=== PATIENT | female | born 1980 | race Caucasian/White ===

== ENCOUNTER 2017-10-23 18:36 | Emergency (ER) | payer SELFPAY | END 2017-10-23 19:31 | disposition home or self-care (01) | PROVIDERS: Emergency Provider Nurse Practitioner Family; Family Provider Internal Medicine Adolescent Medicine; Visit Provider Nurse Practitioner Family | DX: J10.1 Influenza due to other identified influenza virus with other respiratory manifestations (principal); J45.909 Unspecified asthma, uncomplicated | CPT/HCPCS: 87804; 99201 ==

== ENCOUNTER → 2019-01-24 12:15 | Outpatient (CLI) | payer BC, SELFPAY ==
[2019-01-24 14:43] LABS: Alanine Aminotransferase 23 U/L (12-78); Albumin Level 3.7 gm/dL (3.4-5.0); Albumin/Globulin Ratio 1.1 (1.1-1.8); Alkaline Phosphatase 86 U/L (46-116); Anion Gap 15.3 mEq/L (5-15); Aspartate Amino Transferase 15 U/L (15-37); Bilirubin,Total 0.2 mg/dL (0.2-1.0); Blood Urea Nitrogen 11 mg/dL (7-18); Calcium 9.1 mg/dL (8.5-10.1); Carbon Dioxide 24 mmol/L (21.0-32.0); Chloride 106 mmol/L (98-107); Creatinine,Serum 0.66 mg/dL (0.55-1.02); Estimated Glomerular Filt Rate 100 ml/min (>60); GFR (African American) 121 ML/MIN (>60); Globulin 3.5 gm/dl (1.3-3.2); Glucose 85 mg/dL (74-106); Potassium 4.3 mmoL/L (3.5-5.1); Sodium 141 mmol/L (136-145); Thyroid Stimulating Hormone 3.73 uIU/ml (0.358-3.740); Total Protein,Serum 7.2 gm/dL (6.4-8.2)
== END ==
PROVIDERS: Visit Provider Internal Medicine Adolescent Medicine
DX: E03.9 Hypothyroidism, unspecified (principal)
CPT/HCPCS: 36415; 80053; 83036; 84443

== ENCOUNTER → 2020-02-01 08:18 | Outpatient (CLI) | payer OTHER, SELFPAY ==
--- NOTE | 2020-02-01 08:21 | US_ITS ---
PROCEDURE: US GALLBLADDER CLINICAL INDICATION: RUQ PAIN,DIARRHEA COMPARISON: No exams were available for comparison FINDINGS: Pancreas: Portions seen are within normal limits. Distal pancreatic body and tail are not adequately visualized for assessment. Liver: There is diffuse fatty infiltration of the liver without a discrete lesion.. There is appropriate direction of blood flow within a non dilated portal vein. Right kidney: Unremarkable appearing. No hydronephrosis. Gallbladder: No stones are evident. There is no gallbladder wall thickening. Common duct is normal in diameter. There are some internal echogenicities consistent with sludge and or reverberation artifact. IMPRESSION: Small amount of sludge in the gallbladder without stones or ancillary findings of acute cholecystitis. Diffuse fatty infiltration of the liver. Dictated by: Zach Frost 02/01/2020 09:35 Electronically signed by Zach Frost in [place] 02/01/2020 09:35
== END ==
PROVIDERS: PCP Internal Medicine Adolescent Medicine; Visit Provider Nurse Practitioner Family
DX: R10.10 Upper abdominal pain, unspecified (principal); R07.89 Other chest pain; K52.9 Noninfective gastroenteritis and colitis, unspecified
CPT/HCPCS: 76705

== ENCOUNTER → 2020-02-08 10:20 | Outpatient (CLI) | payer OTHER, SELFPAY ==
--- NOTE | 2020-02-08 10:25 | NM_ITS ---
PROCEDURE: NM HEPATOBILIARY W PHARM CLINICAL INDICATION: GB SLUDGE Right upper quadrant pain, gallbladder sludge COMPARISON: US GALLBLADDER from 02/01/2020 TECHNIQUE: Dose: 8.12 mCi technetium Choletec and 2.4 mcg of CCK FINDINGS: Gallbladder activity begins at 5 minutes. Small bowel activity is present by 25 minutes. There is homogeneous activity within hepatic parenchyma Ejection fraction is calculated to be 79 percent which is within normal limits. IMPRESSION: Unremarkable exam with no evidence of common or cystic duct obstruction with normal gallbladder ejection fraction Dictated by: Zachery Shukla MD 02/08/2020 13:31 Electronically signed by Zachery Shukla MD in [place] 02/08/2020 13:31
--- NOTE | 2020-02-08 11:35 | HMH.ITSHM ---
Current Home Medications as stated by this patient Lizbeth Real or b2b sales representative. []ALBUTEROL
== END ==
PROVIDERS: PCP Internal Medicine Adolescent Medicine; Visit Provider Nurse Practitioner Family
DX: K82.8 Other specified diseases of gallbladder (principal)
CPT/HCPCS: 78227; A9537; J2805

== ENCOUNTER → 2020-03-28 13:52 | Outpatient (CLI) | payer OTHER, SELFPAY ==
--- NOTE | 2020-03-28 13:56 | US_ITS ---
PROCEDURE: US THYROID CLINICAL INDICATION: THYROID ENLARGEMENT COMPARISON: No exams were available for comparison FINDINGS: Right lobe: 5.1 x 1.7 x 1.8 cm. There is some heterogeneous echogenicity. Questionable 8 mm slightly hypoechoic nodule mid polar region versus an area of heterogeneous echogenicity. Consider six-month follow-up Left lobe: 3.9 x 1.2 x 1.4 cm also with some heterogeneous echogenicity. A 3 mm hypoechoic nodules present in the upper pole Isthmus: Unremarkable Additional findings: IMPRESSION: Enlarged right lobe of the thyroid gland. Bilateral heterogeneous echogenicity with questionable nodule in the right and a 3 mm hypoechoic nodule on the left. Consider six-month follow-up for the questionable nodule on the right. Dictated by: Zachery Shukla MD 03/29/2020 06:51 Electronically signed by Zachery Shukla MD in [place] 03/29/2020 06:51
== END ==
PROVIDERS: PCP Internal Medicine Adolescent Medicine; Visit Provider Internal Medicine Adolescent Medicine
DX: E04.9 Nontoxic goiter, unspecified (principal)
CPT/HCPCS: 76536

== ENCOUNTER → 2020-04-09 14:16 | Outpatient (CLI) | payer OTHER, SELFPAY ==
--- NOTE | 2020-04-09 14:32 | XR_ITS ---
PROCEDURE: XR CHEST 2V CLINICAL HISTORY: thyroid enlarged COMPARISON: CXR CHEST(2 VIEWS-NOT PORTABLE) from 11/14/2013 CXR2V XR chest 2V from 12/28/2018 FINDINGS: The cardiomediastinal silhouette and pulmonary vascularity are within normal limits. The lungs are clear without infiltrates, suspicious nodules, or pleural effusions. No acute bony abnormalities. IMPRESSION: No acute findings. Dictated by: Dr. Adrian Banda MD 04/09/2020 14:[address] Adrian Banda MD in [place] 04/09/2020 14:50
[2020-04-09 16:00] LABS: Free T4 (Free Thyroxine) 0.84 ng/dl (0.78-2.19)
[2020-04-09 16:15] LABS: Thyroid Stimulating Hormone 2.97 uIU/mL (0.465-4.68)
[2020-04-11 09:12] LABS: Thyroid Peroxidase Antibodies <9 IU/mL (0-34)
[2020-04-11 09:13] LABS: Triiodothyronine (T3) Free 3.1 pg/mL (2.0-4.4)
[2020-04-12 17:10] LABS: Calcitonin <2.0 pg/mL (0.0-5.0); Thyroid Stimulating Immunoglob <0.10 IU/L (0.00-0.55)
== END ==
PROVIDERS: Visit Provider Otolaryngology
DX: E01.0 Iodine-deficiency related diffuse (endemic) goiter (principal); J39.8 Other specified diseases of upper respiratory tract
CPT/HCPCS: 36415; 71046; 82308; 82310; 84439; 84443; 84445; 84481; 86376

== ENCOUNTER → 2020-04-12 08:41 | Outpatient (CLI) | payer OTHER, SELFPAY ==
--- NOTE | 2020-04-12 08:41 | FL_ITS ---
PROCEDURE: FL BARIUM SWALLOW CLINICAL INDICATION: dysphagia COMPARISON: No exams were available for comparison TECHNIQUE: In the upright position the patient was observed to swallow barium in both the AP and lateral view. The cervical esophagus was examined under fluoroscopy with images obtained. The patient was then placed prone in the right anterior oblique position and was observed to swallow barium with Valsalva technique . FLUOROSCOPY TIME: 54 seconds FINDINGS: There was no evidence of aspiration. There was normal peristalsis. No filling defects or mucosal abnormalities. No masses or strictures. There is a small sliding hiatal hernia. There is a small filling defect along the anterior aspect the esophagus which could be due to a small esophageal web. There is no esophageal deviation. IMPRESSION: 1. Small sliding hiatal hernia. 2. Possible small non constricting esophageal web anteriorly at the C4 level Dictated by: Zachery Shukla MD 04/12/2020 14:57 Electronically signed by Zachery Shukla MD in [place] 04/12/2020 14:57
== END ==
PROVIDERS: PCP Internal Medicine Adolescent Medicine; Visit Provider Otolaryngology
DX: J39.8 Other specified diseases of upper respiratory tract (principal); R13.10 Dysphagia, unspecified
CPT/HCPCS: 74220

== ENCOUNTER → 2020-07-12 08:54 | Outpatient (CLI) | payer OTHER, SELFPAY ==
--- NOTE | 2020-07-12 08:54 | FL_ITS ---
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 The cervical esophagus was examined under fluoroscopy with images obtained. The patient was then placed prone in the right anterior oblique position and was observed to swallow barium with Valsalva technique . FLUOROSCOPY TIME: 37 seconds FINDINGS: As noted previously there is a small filling defect along the anterior and posterior aspect of the cervical esophagus at the C4 level which could represent a tiny esophageal web. This is not significantly changed. Mid distal esophagus have an unremarkable appearance. The small sliding hiatal hernia previously described is not identified on today's exam. IMPRESSION: No change in the possible small non constricting esophageal web Dictated by: Zachery Shukla MD 07/12/2020 12:12 Zachery Shukla MD in [place] 07/12/2020 12:12
== END ==
PROVIDERS: PCP Internal Medicine Adolescent Medicine; Visit Provider Otolaryngology
DX: Q39.4 Esophageal web (principal); R13.10 Dysphagia, unspecified
CPT/HCPCS: 74220

== ENCOUNTER → 2020-09-12 09:59 | Outpatient (CLI) | payer OTHER, SELFPAY ==
--- NOTE | 2020-09-12 | CA_ITS ---
APPROVED REPORT Right Upper Extremity Venous Study for DVT. Magneto Electrician: Dory Ureña RVT Indications Upper Extremity Pain: Right Upper Extremity Edema: Right PT HAD INJECTION SEVERAL MTHS AGO HAS HAD SWELLING RUE AND RT CHEST SINCE Risk Factors Obesity Vein Imaging IJV (R): Normal phasic flow is seen. Normal flow, augmentation and compression is seen. No evidence of Deep Vein Thrombosis. No abnormalities are demonstrated. SCV (R): Normal phasic flow is seen. Normal flow, augmentation and compression is seen. No evidence of Deep Vein Thrombosis. No abnormalities are demonstrated. Axillary (R): Normal phasic flow is seen. Normal flow, augmentation and compression is seen. No evidence of Deep Vein Thrombosis. No abnormalities are demonstrated. Brachial (R): Normal phasic flow is seen. Normal flow, augmentation and compression is seen. No evidence of Deep Vein Thrombosis. No abnormalities are demonstrated. Basilic (R): Normal phasic flow is seen. Normal flow, augmentation and compression is seen. No evidence of Deep Vein Thrombosis. No abnormalities are demonstrated. Cephalic (R): Normal phasic flow is seen. Normal flow, augmentation and compression is seen. No evidence of Deep Vein Thrombosis. No abnormalities are demonstrated. Radial (R): Normal phasic flow is seen. Normal flow, augmentation and compression is seen. No evidence of Deep Vein Thrombosis. No abnormalities are demonstrated. Ulnar (R): Normal phasic flow is seen. Normal flow, augmentation and compression is seen. No evidence of Deep Vein Thrombosis. No abnormalities are demonstrated. Findings Study suggests no evidence of DVT of the right upper extremity. Study suggests no evidence of SVT of the right upper extremity. Conclusion Study suggests no evidence of DVT of the right upper extremity. Study suggests no evidence of SVT of the right upper extremity. Electronically signed by : Zachery Shukla MD 09/12/2020 17:45:39
== END ==
PROVIDERS: PCP Internal Medicine Adolescent Medicine; Visit Provider Internal Medicine Adolescent Medicine
DX: M79.601 Pain in right arm (principal)
CPT/HCPCS: 93971

== ENCOUNTER → 2020-09-23 09:35 | Outpatient (CLI) | payer OTHER, SELFPAY ==
--- NOTE | 2020-09-23 09:39 | CT_ITS ---
PROCEDURE: CT CHEST WO/W CON CLINCAL INDICATION: LYMPHEDEMA right lymphadema after steroid injection into r arm COMPARISON: No exams were available for comparison TECHNIQUE: IV Contrast: 75ml Isovue 370 Axial images obtained with sagittal and coronal reformats. All CT scans at the facility use one or more dose reduction, viz: automated exposure control, ma/kV adjustment per patient size (including targeted exams where dose is matched to indication, i.e. head), or iterative reconstruction technique. FINDINGS: HEART AND MEDIASTINAL STRUCTURES: There is some minimal increased soft tissue density in the anterior mediastinum and may be related to residual thymic tissue. No mediastinal or hilar mass or adenopathy LUNGS AND PLEURAL SPACES: Unremarkable. BONY STRUCTURES: There is a small sclerotic focus in the T4 vertebral body consistent with a small bone island. UPPER ABDOMEN: Fatty liver ADDITIONAL FINDINGS: No axillary adenopathy or axillary mass or fluid collection. IMPRESSION: Essentially negative CT of the chest with contrast. Dictated by: Zachery Shukla MD 09/24/2020 12:59 Zachery Shukla MD in [place] 09/24/2020 12:59
== END ==
PROVIDERS: PCP Internal Medicine Adolescent Medicine; Visit Provider Internal Medicine Adolescent Medicine
DX: I89.0 Lymphedema, not elsewhere classified (principal)
CPT/HCPCS: 71270

== ENCOUNTER → 2020-10-01 13:23 | Outpatient (CLI) | payer OTHER, SELFPAY ==
--- NOTE | 2020-10-01 13:33 | XR_ITS ---
PROCEDURE: XR FOOT WT BEARING RT 3V CLINICAL INDICATION: pain COMPARISON: CR XR FOOT RT MIN 3V from 08/20/2019 FINDINGS: No fracture or dislocation. No lytic or blastic change. There is normal mineralization. The joint spaces are well preserved.. There is good alignment. There is a small calcaneal spur and a small Achilles enthesophyte. Other findings:None. IMPRESSION: No change with no acute finding Dictated by: Zachery Shukla MD 10/01/2020 15:27 Zachery Shukla MD in [place] 10/01/2020 15:27
--- NOTE | 2020-10-01 13:33 | XR_ITS ---
PROCEDURE: XR FOOT WT BEARING LT 3V CLINICAL INDICATION: pain COMPARISON: CR XR FOOT RT MIN 3V from 08/20/2019 FINDINGS: No fracture or dislocation. No lytic or blastic change. There is normal mineralization. The joint spaces are well-preserved. No significant degenerative/arthritic changes. No erosive changes evident. Other findings:None. There is a small calcaneal spur without erosive change in the small Achilles enthesophyte. There are hypertrophic changes at the base of the calcaneal spur. IMPRESSION: Small calcaneal spur with hypertrophic changes of the calcaneus at the base of the spur otherwise negative Dictated by: Zachery Shukla MD 10/01/2020 17:00 Zachery Shukla MD in [place] 10/01/2020 17:00
== END ==
PROVIDERS: PCP Internal Medicine Adolescent Medicine; Visit Provider Podiatrist
DX: M79.672 Pain in left foot (principal); M79.671 Pain in right foot
CPT/HCPCS: 73630

== ENCOUNTER 2021-02-13 12:00 | Emergency (ER) | payer OTHER, SELFPAY ==
--- NOTE | 2021-02-13 12:21 | XR_ITS ---
PROCEDURE: XR HAND RT MIN 3V CLINICAL INDICATION: hand pain and swelling, no injury COMPARISON: No exams were available for comparison FINDINGS: No fracture or dislocation. No lytic or blastic change. There is normal mineralization. The joint spaces are well-preserved. No significant degenerative/arthritic changes. No erosive changes evident. Other findings:There is a groove like area along the tip of the distal phalanx of the which could be related to an old fracture. IMPRESSION: Possible old fracture distal phalanx of the thumb otherwise negative Dictated by: Zachery Shukla MD 02/13/2021 12:45 Zachery Shukla MD in [place] 02/13/2021 12:45
[2021-02-13 12:26] VITALS: RESP 16; TEMP 37.1; O2SAT 96; BMI 47.5
--- NOTE | 2021-02-13 12:55 | HMH.EDUTC ---
[facility] Disposition Clinical Impression: Right hand pain, Cyst of joint of right hand Disposition: Home, Self-Care Condition on Discharge: Good Instructions: Ganglion Cyst, DI for Hand Pain, DI Ganglion Cyst Additional Instructions: Rest the extremity, Wear the [place] wrap for compression, Elevate the extremity as tolerated while you are resting. Take ibuprofen for pain. I sent in a prescription to your pharmacy. Follow up with Dr. Hook (orthopedics) if your symptoms persist. I put in a referral but you need to call his office and schedule an appointment. Follow up with your regular doctor. GO TO THE ER FOR ANY WORSENING SYMPTOMS Prescriptions: Ibuprofen [Ibuprofen 800mg Tablet] 800 mg PO Q8HP PRN #30 tab PRN Reason: Moderate Pain Transmission Status: Received by [id number] cephALEXin [cephALEXin 500mg capsule] 500 mg PO Q6H 10 Days #40 cap Transmission Status: Received by [id number] Referrals: Oneal Lopez MD [Primary Care Provider] - Davide Hook MD [Staff Physician] - Forms: Work/School Release Time of Disposition: 13:02 Medical Decision Making - Medical Records Medical records reviewed: No: I reviewed the patient's medical records. - Cole Inquiry Pt receiving controlled substance: No Vital Signs: 02/13/21 12:26 02/13/21 13:06 Temperature 98.7 F 98.7 F Temperature Source Oral Oral Pulse Rate 70 Respiratory Rate 16 16 Blood Pressure 162/72 H 02 Sat by Pulse Oximetry 96 Oxygen Delivery Method Room Air Room Air - Radiology Data #1 Image(s): Hand Image Reviewed: Yes I reviewed the patient's radiology image, Yes I have reviewed radiologist's interpretation Preliminary Findings: Normal/NAD, No Fracture Seen PROCEDURE: XR HAND RT MIN 3V CLINICAL INDICATION: hand pain and swelling, no injury COMPARISON: No exams were available for comparison FINDINGS: No fracture or dislocation. No lytic or blastic change. There is normal mineralization. The joint spaces are well-preserved. No significant degenerative/arthritic changes. No erosive changes evident. Other findings:There is a groove like area along the tip of the distal phalanx of the which could be related to an old fracture. IMPRESSION: Possible old fracture distal phalanx of the thumb otherwise negative Dictated by: Zachery Shukla MD 02/13/2021 12:45 Zachery Shukla MD in [place] 02/13/2021 12:45 [facility] HPI - General Stated complaint: knot on top of right hand, no accident Time Seen by Provider: 02/13/21 12:55 Mode of Arrival: Ambulatory Source of Information: Patient Limitations: No Limitations Description of Symptoms (Recalled from Triage Doc. by RN): Knot on right hand HEENT Symptoms (Recalled from RN notes): No Resp Symptoms (Recalled from RN notes): No Skin Symptoms (Recalled from RN notes): No MS Symptoms (Recalled from RN notes): Yes Functional Status (Recalled from RN notes): na - History of Present Illness Provider Complaint: She states that she has has painful area of swelling on top of her right hand. She denies any known injury. She denies any redness in the area. She denies any fever/chills. She denies any recent IV or blood sticks. - Related Data Home Medications Medication Instructions Recorded Confirmed cyclobenzaprine 10 mg tablet 10 mg PO tab 10/01/20 01/27/21 diclofenac sodium 1 % topical gel TOPICAL 10/01/20 01/27/21 Previous Rx's Medication Instructions Recorded meloxicam 7.5 mg tablet 7.5 mg PO DAILY 30 Days #30 tab 01/07/21 methylprednisolone 4 mg tablets in See Rx Instructions PO PER PKG DIR 01/07/21 a dose pack #21 tab Ibuprofen [Ibuprofen 800mg 800 mg PO Q8HP PRN #30 tab 02/13/21 Tablet] cephALEXin [cephALEXin 500mg 500 mg PO Q6H 10 Days #40 cap 02/13/21 capsule] Allergies Allergy/AdvReac Type Severity Reaction Status Date / Time No Known Allergies Allergy Verified 01/27/21 14:49 - Worker's Comp Is this a Worker
[2021-02-13 13:06] VITALS: BP 162/72; PULSE 70; RESP 16; TEMP 37.1; O2SAT 98
== END 2021-02-13 13:07 | disposition home or self-care (01) ==
PROVIDERS: Emergency Provider Nurse Practitioner Family; PCP Internal Medicine Adolescent Medicine
DX: M25.841 Other specified joint disorders, right hand (principal); F41.9 Anxiety disorder, unspecified; K21.9 Gastro-esophageal reflux disease without esophagitis; Z79.899 Other long term (current) drug therapy
CPT/HCPCS: 73130; 99202; G0463

== ENCOUNTER 2021-02-24 09:41 | Outpatient (RCR) | payer OTHER, SELFPAY | END 2021-02-24 10:15 | disposition home or self-care (01) | LOC: OT 09:41 | PROVIDERS: Visit Provider Orthopaedic Surgery | DX: M79.641 Pain in right hand (principal) | CPT/HCPCS: 97763 ==

== ENCOUNTER → 2021-04-03 12:14 | Outpatient (CLI) | payer OTHER, SELFPAY ==
--- NOTE | 2021-04-03 12:26 | XR_ITS ---
PROCEDURE: XR CERVICAL SPINE 3V CLINICAL INDICATION: Radiating pain from hand COMPARISON: No exams were available for comparison FINDINGS: No fracture or dislocation. No lytic or blastic change. Minimal anterolisthesis C3 on C4 of 2 mm which may be physiologic. The disc spaces are well preserved. No significant degenerative change. IMPRESSION: Negative cervical spine Dictated by: Zachery Shukla MD 04/03/2021 13:10 Zachery Shukla MD in [place] 04/03/2021 13:10
== END ==
PROVIDERS: PCP Internal Medicine Adolescent Medicine; Visit Provider Orthopaedic Surgery
DX: M79.641 Pain in right hand (principal)
CPT/HCPCS: 72040

== ENCOUNTER 2021-04-25 14:33 | Outpatient (RCR) | payer OTHER, SELFPAY | END 2021-04-25 15:17 | disposition home or self-care (01) | LOC: OT 14:33 | PROVIDERS: Visit Provider Orthopaedic Surgery | DX: M65.4 Radial styloid tenosynovitis [de Quervain] (principal) | CPT/HCPCS: 97763 ==

== ENCOUNTER 2022-12-12 19:07 | Emergency (ER) | payer OTHER, SELFPAY ==
--- NOTE | 2022-12-12 19:21 | XR_ITS ---
PROCEDURE INFORMATION: Exam: XR Left Hand Exam date and time: 12/12/2022 7:18 PM Age: 42 years old Clinical indication: Pain; Hand; Left; Additional info: Pain 2nd 3rd digits TECHNIQUE: Imaging protocol: Radiologic exam of the Left hand. Views: 3 or more views. COMPARISON: No relevant prior studies available. FINDINGS: Bones/joints: Normal. Soft tissues: Normal. IMPRESSION: No acute findings.
--- NOTE | 2022-12-12 19:21 | XR_ITS ---
PROCEDURE INFORMATION: Exam: XR Left Wrist Exam date and time: 12/12/2022 7:19 PM Age: 42 years old Clinical indication: Pain; Wrist; Left TECHNIQUE: Imaging protocol: Radiologic exam of the Left wrist. Views: 3 or more views. COMPARISON: CR Hand L 12/12/2022 7:18 PM FINDINGS: Bones/joints: Normal. Soft tissues: Normal. IMPRESSION: No acute findings.
[2022-12-12 19:25] VITALS: BP 142/90; PULSE 73; RESP 20; TEMP 36.5; O2SAT 96; BMI 47.5
--- NOTE | 2022-12-12 19:29 | EXP.UTC ---
Discharge Plan Disposition Patient Disposition: Home, Self-Care Condition: Good Prescriptions Prescriptions: No Action losartan 50 mg tablet 50 mg PO DAILY Referrals Follow up/Referrals: Gentry Falcon DO [Staff Physician] - See instructions Oneal Lopez MD [Primary Care Provider] - See instructions Activity Restrictions/Add. Instructions Additional Instructions/Restrictions: Rest the extremity, Elevate the extremity as tolerated while you are resting. Take ibuprofen for pain. Follow up with Dr. Falcon (orthopedics). I put in a referral but you need to call his office and schedule an appointment. Follow up with your regular doctor. GO TO THE ER FOR ANY WORSENING SYMPTOMS Clinical Impressions Clinical Impression: Sprain of left hand, Left hand pain Instructions Patient Instructions: DI for Hand Injury, DI for Hand Pain Discharge ED Provider: Luis Padgett [facility] General Stated complaint: PAIN l hAND Time Seen by Provider: 12/12/22 19:29 History of Present Illness Provider Complaint: She states that for the past 2 weeks she has had pain in her left hand. She states that her symptoms began when accidentally bumped her hand on the inside of her washing machine while getting clothe out of it. Related Data Home Medications Medication Instructions Recorded Confirmed losartan 50 mg tablet 50 mg PO DAILY 02/10/22 02/10/22 Allergies Allergy/AdvReac Type Severity Reaction Status Date / Time No Known Allergies Allergy Verified 02/10/22 13:36 [facility] Disclaimer: The information contained in this section may have been updated after the patient was seen, as this information can be updated by other users. Medical History Hypertension Social History Smoking Status: Former smoker second hand exposure: No alcohol intake: never current occupational status: employed Travel in the last 8 weeks: None current occupational exposures/hazards: No caffeine: Yes ROS Obtained: Yes All systems reviewed & no additional complaints except as documented Constitutional Constitutional: Denies chills and Denies fever(s) Eyes Eyes: Denies eye discharge ENT Ears, Nose, Mouth, and Throat: Denies dizziness, Denies otalgia and Denies sore throat Cardiovascular Cardiovascular: Denies chest pain Respiratory Respiratory: Denies shortness of breath, Denies chest congestion, Denies cough, Denies stridor and Denies wheezing Gastrointestinal Gastrointestingal: Denies nausea or vomiting Musculoskeletal Musculoskeletal: Reports as per HPI Integumentary/Breasts Skin/Breast: Denies rash Neurologic Neurologic: Denies dizziness and Denies paresthesias Allergic/Immunologic Allergic/Immunologic: Denies wheezing Physical Exam General General appearance: alert and in no apparent distress Head Head exam: atraumatic, normocephalic and normal inspection Eye Eye exam: Present normal appearance, PERRL and EOMI ENT ENT exam: Present normal exam, normal oropharynx, mucous membranes moist, TM's normal bilaterally and normal external ear exam Neck Neck exam: Present normal inspection, full ROM and trachea midline; Absent meningismus or lymphadenopathy Chest Chest inspection: Present normal inspection and symmetric chest wall rise; Absent tenderness Respiratory Respiratory exam: Present normal lung sounds bilaterally; Absent respiratory distress Cardiovascular Cardiovascular exam: Present regular rate and normal rhythm; Absent JVD Abdominal Exam Abdominal exam: Present soft and normal bowel sounds; Absent distention, tenderness or guarding Extremities Exam Extremities exam: Present normal capillary refill; Absent calf tenderness Expanded Upper Extremity Exam Left: Elbow exam: Present normal inspection and full ROM; Absent tenderness Forearm/Wrist exam: Present normal inspection and full R
[2022-12-12 20:18] VITALS: BP 142/90; PULSE 73; RESP 20; TEMP 36.5; O2SAT 96
== END 2022-12-12 20:19 | disposition home or self-care (01) ==
PROVIDERS: Emergency Provider Nurse Practitioner Family; PCP Internal Medicine Adolescent Medicine
DX: S63.92XA Sprain of unspecified part of left wrist and hand, initial encounter (principal)
CPT/HCPCS: 73110; 73130; 99212; 99213; G0463

== ENCOUNTER 2023-07-22 16:04 | Emergency (ER) | payer OTHER, SELFPAY ==
[2023-07-22] VITALS (7 sets, daily range): BP systolic 130–176; BP diastolic 75–101; PULSE 54–87; RESP 14–20; TEMP 36.5–37.1; O2SAT 95–100; BMI 38.4; BMI 38.6
--- NOTE | 2023-07-22 16:23 | EXP.UTC ---
Discharge Plan Disposition Chief Complaint: PAIN Prescriptions Prescriptions: No Action losartan 50 mg tablet 50 mg PO DAILY Referrals Follow up/Referrals: Oneal Lopez MD [Primary Care Provider] - See instructions Discharge ED Provider: Keny Giles [facility] HPI <Linda Cordova APRN - Last Filed: 07/22/23 19:46> General Chief complaint: PAIN Stated complaint: Neck Pain,Into left shoulder Mode of Arrival: Ambulatory Source of Information: Patient Limitations: No Limitations Time Seen by Provider: 07/22/23 16:10 Description of Symptoms (Recalled from Triage Doc. by RN): PATIENT C/O LEFT SHOULDER PAIN THAT RADIATES UP NECK AND INTO SIDE OF HEAD ON AND OFF SINCE WEDNESDAY, BUT FEELS WORSE TODAY. SHE ALSO STATES SHE FEELS SHAKY AND OFF . HEENT Symptoms (Recalled from RN notes): No Resp Symptoms (Recalled from RN notes): No Skin Symptoms (Recalled from RN notes): No MS Symptoms (Recalled from RN notes): No Functional Status (Recalled from RN notes): WNL History of Present Illness Provider Complaint: Patient states that she has been at a conference in [place] and she started having pain in her left shoulder and left side of neck that was on and off and was achy like States that she got a heating pad thinking it was a muscle or something States that it has came and gone but today it was worse States that it is an achy like pain that goes from her left shoulder into left side of neck, up left side of face and she feels distant states that she feels off and on her way home she felt dizzy and shaky inside State that she just doesnt feel right Related Data Home Medications Medication Instructions Recorded Confirmed losartan 50 mg tablet 50 mg PO DAILY 02/10/22 02/10/22 Allergies Allergy/AdvReac Type Severity Reaction Status Date / Time No Known Allergies Allergy Verified 02/10/22 13:36 Worker's Comp Is this a Worker's Comp case?: No PFSH <Linda Cordova APRN - Last Filed: 07/22/23 19:46> [facility] Disclaimer: The information contained in this section may have been updated after the patient was seen, as this information can be updated by other users. Medical History Hypertension Social History Smoking Status: Never smoker second hand exposure: No alcohol intake: never current occupational status: employed Travel in the last 8 weeks: None current occupational exposures/hazards: No caffeine: Yes <Linda Cordova APRN - Last Filed: 07/22/23 19:46> ROS Obtained: Yes All systems reviewed & no additional complaints except as documented and Yes Systems reviewed as appropriate & no additional complaints except as documented Constitutional Constitutional: Reports system reviewed and no additional complaints, except as documented and Reports as per HPI ENT Ears, Nose, Mouth, and Throat: Reports system reviewed and no additional complaints, except as documented, Reports as per HPI and Reports dizziness Cardiovascular Cardiovascular: Reports system reviewed and no additional complaints, except as documented, Reports as per HPI and Reports radiating jaw, neck or arm pain (reports pain in left shoulder, up left side of neck/face into head) Comments: Reports feels shaky inside and distant Respiratory Respiratory: Reports system reviewed and no additional complaints, except as documented, Reports as per HPI and Denies shortness of breath Gastrointestinal Gastrointestingal: Reports system reviewed and no additional complaints, except as documented and as per HPI Neurologic Neurologic: Reports system reviewed and no additional complaints, except as documented, Reports as per HPI and Reports dizziness Physical Exam <Linda Cordova APRN - Last Filed: 07/22/23 19:46> General General appearance: alert and in no apparent distress Respiratory Respiratory exam: Present normal lung sounds bilaterally; Absent resp
--- NOTE | 2023-07-22 16:38 | ECG_ITS ---
APPROVED REPORT Exam: Resting ECG HR:62 bpm ECG Measurements Heart Rate 62 AXES TX 158 P 30 QRSd 92 QRS -1 QT 401 T 42 QTc 406 Conclusion SINUS RHYTHM LOW QRS VOLTAGE IN PRECORDIAL LEADS [QRS DEFLECTION < 1.0 mV IN CHEST LEADS] BORDERLINE ECG UNCONFIRMED REPORT Electronically signed by : Oneal Lopez MD 07/23/2023 09:55:54
[2023-07-22 17:12] LABS: Basophils # 0.1 K/mm3 (0-0.2); Basophils % 0.7 % (0.1-2.0); Eosinophils # 0.3 K/mm3 (0.0-0.4); Eosinophils % 2.1 % (0.1-12.0); Hematocrit 40.6 % (37.0-47.0); Hemoglobin 13.1 g/dL (12.2-16.2); Lymphocytes # 2.9 K/mm3 (0.7-4.5); Lymphocytes % 24.5 % (10-50); Mean Corpuscular HGB Conc 32.3 g/dL (31.8-35.4); Mean Corpuscular Hemoglobin 29.7 pg (27.0-31.2); Mean Corpuscular Volume 91.9 fl (81-99); Mean Platelet Volume 7.8 fl (7.4-10.4); Monocytes # 0.5 K/mm3 (0.1-1.0); Monocytes % 4.3 % (1.7-9.3); Neutrophils # 8.2 K/mm3 (1.8-7.8); Neutrophils % 68.4 % (37.0-80.0); Platelet Count 362 K/mm3 (142-424); Red Blood Count 4.41 M/mm3 (4.20-5.40); Red Cell Distribution Width 12.7 % (11.5-17.5)
--- NOTE | 2023-07-22 17:13 | PC.NURSE ---
Dr. Giles at [facility] for pt eval
[2023-07-22 17:14] LABS: Alanine Aminotransferase 17 U/L (12-78); Albumin/Globulin Ratio 1.4 (1.1-1.8); Alkaline Phosphatase 54 U/L (38-126); Aspartate Amino Transferase 26 U/L (14-36); Bilirubin,Total 0.2 mg/dl (0.2-1.3); Blood Urea Nitrogen 13 mg/dl (7-17); Calcium 8.6 mg/dl (8.4-10.2); Carbon Dioxide 24 mmol/L (22.0-30.0); Chloride 106 mmol/L (98-107); Creatinine Clearance Estimated 146 mL/min (50-200); Estimated Glomerular Filt Rate 78 ml/min (>60); GFR (African American) 95 ML/MIN (>60); Globulin 2.8 g/dL (1.3-3.2); Glucose 89 mg/dl (74-100); Sodium 136 mmol/L (136-145); Total Protein,Serum 6.8 g/dl (6.3-8.2)
--- NOTE | 2023-07-22 17:16 | CT_ITS ---
PROCEDURE INFORMATION: Exam: CT Head Without Contrast Exam date and time: 07/22/2023 5:53 PM Age: 43 years old Clinical indication: Pain; Headache; Additional info: Headache L side TECHNIQUE: Imaging protocol: Computed tomography of the head without contrast. Radiation optimization: All CT scans at this facility use at least one of these dose optimization techniques: automated exposure control; mA and/or kV adjustment per patient size (includes targeted exams where dose is matched to clinical indication); or iterative reconstruction. REPORTING DATA: Count of CT and Cardiac NM exams in prior 12 months: This patient has received 0 known CTs and 0 known cardiac nuclear medicine studies in the 12 months prior to the current study. COMPARISON: CR XR CERVICAL SPINE 3V 04/03/2021 12:28 PM FINDINGS: Brain: Normal. No hemorrhage. Unremarkable white matter. No mass effect. Cerebral ventricles: No ventriculomegaly. Paranasal sinuses: Mild paranasal sinus disease. Mastoid air cells: Visualized mastoid air cells are well aerated. Bones/joints: Unremarkable. No acute fracture. Soft tissues: Unremarkable. IMPRESSION: No acute intracranial abnormality.
--- NOTE | 2023-07-22 17:16 | CT_ITS ---
PROCEDURE INFORMATION: Exam: CTA Neck With Contrast Exam date and time: 07/22/2023 5:53 PM Age: 43 years old Clinical indication: Pain; Headache; Additional info: L and posterior neck and headache TECHNIQUE: Imaging protocol: Computed tomographic angiography of the neck with contrast. 3D rendering (Not supervised by radiologist): MIP and/or 3D reconstructed images were created by the technologist. Radiation optimization: All CT scans at this facility use at least one of these dose optimization techniques: automated exposure control; mA and/or kV adjustment per patient size (includes targeted exams where dose is matched to clinical indication); or iterative reconstruction. Contrast material: ISOVUE 370; Contrast volume: 100 ml; Contrast route: INTRAVENOUS (IV); REPORTING DATA: Count of CT and Cardiac NM exams in prior 12 months: This patient has received 0 known CTs and 0 known cardiac nuclear medicine studies in the 12 months prior to the current study. COMPARISON: CR XR CERVICAL SPINE 3V 04/03/2021 12:28 PM FINDINGS: Right common carotid artery: No stenosis. No dissection or occlusion. Right internal carotid artery: No stenosis of the extracranial segment. No dissection or occlusion. Right external carotid artery: No occlusion or stenosis of the origin. Left common carotid artery: No stenosis. No dissection or occlusion. Left internal carotid artery: No stenosis of the extracranial segment. No dissection or occlusion. Left external carotid artery: No occlusion or stenosis of the origin. Right vertebral artery: Right vertebral artery is dominant. Left vertebral artery: No stenosis. No dissection or occlusion. Soft tissues: Normal. No significant soft tissue swelling. Bones/joints: No acute fracture. IMPRESSION: No hemodynamically significant stenosis or dissection. REFERENCES: NASCET CRITERIA. The degree of stenosis in the cervical segment of the internal carotid artery is based on NASCET criteria. Normal is no stenosis. Mild is less than 50% stenosis. Moderate is 50-69% stenosis. Severe is 70% to 99% stenosis. Total occlusion is no detectable patent lumen.
--- NOTE | 2023-07-22 17:16 | CT_ITS ---
PROCEDURE INFORMATION: Exam: CTA Head With Contrast, Arteriography Exam date and time: 07/22/2023 5:53 PM Age: 43 years old Clinical indication: Other: Left neck pain and headache; Additional info: L neck and posterior pain radiating into head TECHNIQUE: Imaging protocol: Computed tomographic angiography of the head with contrast. Exam focused on the arteries. 3D rendering (Not supervised by radiologist): MIP and/or 3D reconstructed images were created by the technologist. Radiation optimization: All CT scans at this facility use at least one of these dose optimization techniques: automated exposure control; mA and/or kV adjustment per patient size (includes targeted exams where dose is matched to clinical indication); or iterative reconstruction. Contrast material: ISOVUE 370; Contrast volume: 100 ml; Contrast route: INTRAVENOUS (IV); REPORTING DATA: Count of CT and Cardiac NM exams in prior 12 months: This patient has received 0 known CTs and 0 known cardiac nuclear medicine studies in the 12 months prior to the current study. COMPARISON: CR XR CERVICAL SPINE 3V 04/03/2021 12:28 PM FINDINGS: ANTERIOR CIRCULATION: Right internal carotid artery: Intracranial segment is patent with no significant stenosis. No aneurysm. Right middle cerebral artery: No occlusion or significant stenosis. No aneurysm. Right anterior cerebral artery: No occlusion or significant stenosis. No aneurysm. Left internal carotid artery: Intracranial segment is patent with no significant stenosis. No aneurysm. Left middle cerebral artery: No occlusion or significant stenosis. No aneurysm. Left anterior cerebral artery: Hypoplastic left A1 segment. POSTERIOR CIRCULATION: Right vertebral artery: Right vertebral artery is dominant. Left vertebral artery: No occlusion or significant stenosis. No aneurysm. Basilar artery: No occlusion or significant stenosis. No aneurysm. Right posterior cerebral artery: No occlusion or significant stenosis. No aneurysm. Left posterior cerebral artery: No occlusion or significant stenosis. No aneurysm. IMPRESSION: No hemodynamically significant stenosis or large vessel occlusion.
--- NOTE | 2023-07-22 17:18 | [facility].EDGENADL ---
Discharge Plan Disposition Patient Disposition: Home, Self-Care Prescriptions Prescriptions: New methocarbamol 500 mg tablet 1,000 mg PO Q8H Qty: 18 0RF Rx Instructions: Neck spasm No Action losartan 50 mg tablet 50 mg PO DAILY Referrals Follow up/Referrals: Oneal Lopez MD [Primary Care Provider] - See instructions Activity Restrictions/Add. Instructions Additional Instructions/Restrictions: At this time it was felt you are safe to be discharged home. If new or worsening symptoms please do not hesitate to return the emergency department. If symptoms persist please follow-up with your family doctor as you are able. Please take your medication as prescribed. Clinical Impressions Clinical Impression: Acute neck pain Discharge ED Provider: Keny Giles General Adult HPI General Chief complaint: PAIN Stated complaint: Neck Pain,Into left shoulder Time Seen by Provider: 07/22/23 16:10 Mode of Arrival: Ambulatory Source of Information: Patient Limitations: No Limitations Description of Symptoms (Recalled from ER Triage Doc. by RN): 43 yo F transfer from [facility] for further workup. pt reports pain in left neck radiating into shoulder, head. pt reports symptoms began yesterday and have been intermittent. pt also reports feeling weak. History of Present Illness HPI narrative: Patient is a 43-year-old female with no chronic medical conditions who presents emergency department for evaluation of left-sided neck pain. Onset was acute, occurring Wednesday. Patient is a [employer] worker. She originally attributed it to muscle spasm however she has intermittent pain that is radiating up in the posterior left occiput wrapping around her ear. No falls. No previous history of headaches. There is associated nonspecific dizziness. No other acute complaints at this time. Related Data Home Medications Medication Instructions Recorded Confirmed losartan 50 mg tablet 50 mg PO DAILY 02/10/22 02/10/22 Previous Rx's Medication Instructions Recorded methocarbamol 500 mg tablet 1,000 mg PO Q8H #18 tabs 07/22/23 Allergies Allergy/AdvReac Type Severity Reaction Status Date / Time No Known Allergies Allergy Verified 02/10/22 13:36 [facility] Disclaimer: The information contained in this section may have been updated after the patient was seen, as this information can be updated by other users. Medical History Hypertension Social History (Reviewed 12/13/22 @ 12:30 by PETRA Gutierrez Smoking Status: Never smoker second hand exposure: No alcohol intake: never current occupational status: employed Travel in the last 8 weeks: None current occupational exposures/hazards: No caffeine: Yes ROS Obtained: Yes Systems reviewed as appropriate & no additional complaints except as documented Physical Exam General General appearance: alert and in no apparent distress Head Head exam: atraumatic and normocephalic Eye Eye exam: Present PERRL and EOMI ENT ENT exam: Present mucous membranes moist Neck Neck exam: Present normal inspection Chest Chest inspection: Present normal inspection and symmetric chest wall rise Respiratory Respiratory exam: Present normal lung sounds bilaterally; Absent respiratory distress Cardiovascular Cardiovascular exam: Present regular rate and normal rhythm Abdominal Exam Abdominal exam: Present soft; Absent tenderness Extremities Exam Extremities exam: Present normal inspection Neurological Exam Neurological exam: Present alert and CN II-XII intact; Absent motor sensory deficit Psychiatric Psychiatric exam: Present normal affect Skin Skin exam: Present warm and dry Medical Decision Making Cole Inquiry Pt receiving controlled substance: No Vital Signs: 07/22/23 16:10 07/22/23 16:56 07/22/23 17:36 Temperature 97.7 F 98.2 F Temperature Source Oral Oral Pulse Rate 84 Pulse Rate [Left Br
--- NOTE | 2023-07-22 17:21 | PC.NURSE ---
Visual acuity with correction. Both: 20/40 Left:20/50 Right: 20/40 Pt also provided with blanket at this time.
--- NOTE | 2023-07-22 18:34 | PC.NURSE ---
Pt ambulatory to bathroom and back to bed. No other needs voiced at this time. Call light within reach.
[2023-07-22 19:10] LABS: Erythrocyte Sedimentation Rate 11 mm/hr (0-20)
== END 2023-07-22 20:30 | disposition home or self-care (01) ==
LOC: UTC 16:09 → ER 16:41
PROVIDERS: Emergency Provider Emergency Medicine; PCP Internal Medicine Adolescent Medicine
DX: M54.2 Cervicalgia (principal); M25.512 Pain in left shoulder; I10 Essential (primary) hypertension
CPT/HCPCS: 70450; 70496; 70498; 80053; 85025; 85651; 93005; 96361; 96374; 96375; 99285; Q9967

== ENCOUNTER 2025-01-16 18:00 | Outpatient (CLI) | payer OTHER, SELFPAY ==
[2025-01-16 22:23] LABS: Coronavirus 19, PCR Not Detected (NotDetected); Influenza A, PCR Not Detected (NotDetected); Influenza B, PCR Not Detected (NotDetected)
== END 2025-01-16 23:59 | disposition home or self-care (01) ==
LOC: LAB.DROPOF 01-17 09:22
PROVIDERS: PCP Student in an Organized Health Care Education/Training Program; Visit Provider Student in an Organized Health Care Education/Training Program
DX: J32.9 Chronic sinusitis, unspecified (principal); Z20.822 Contact with and (suspected) exposure to COVID-19
CPT/HCPCS: 87636